=== PATIENT | female | born 1955 | race Caucasian/White ===

== ENCOUNTER 2019-06-26 06:57 | Inpatient (IN) ==
[2019-06-26] MEDS ORDERED: ONDANSETRON INJ 2 MG/ML 2 ML VIAL IV STA (07:08)
[2019-06-26] MEDS ORDERED: KETOROLAC 30 MG/ML VIAL IV STA (07:18)
--- NOTE | 2019-06-26 07:20 | Emergency Department Note ---
ED Visit Note I assisted attending Dr. Carlson in the care of this patient. Please see attending's note for details of the visit. Nori Negron MD Sheeter Helper PGY-3 . Resident Activity Tracking Resident Involvement: Resident Care Provided Care Provided: Adult ED
--- NOTE | 2019-06-26 07:25 | Emergency Department Note ---
Entered by Maurice Reynoso acting as a scribe for History of Present Illness General Chief complaint: Back Injury/Pain Stated complaint: RIGHT BACK PAIN Time Seen by Provider: 06/26/19 07:02 Source: patient History of Present Illness Onset (ago): minute(s) (this morning) Location: back (right, lower) Pain Consistency: + constant Maximum Pain Intensity: 8 Current Pain Intensity: 8 Exacerbated By: not by movement Associated symptoms: + denies other symptoms (loose stool, pain with urination, blood in her urine, a history of abdominal surgeries, taking medication daily, recent travel, vaginal bleeding, vaginal discharge) and + other (right abdominal pain); no fever/chills and no rash The patient is a 63 y/o female who presents to the ED w/ CC of constant right lower back pain beginning this morning. The patient states she woke up this morning with 8/10 lower right back pain that radiates to the front of her abdomen. She reports she has been nauseous and vomited this morning as well. The patient notes she has not had symptoms like this before. She states she did not eat anything out of the ordinary yesterday and went to [place]. The patient reports her father has a history of kidney stones. She notes a history of the shingles, and this does not feel like that. The patient states movement does not worsen her discomfort. She denies loose stool, pain with urination, fevers, chills, blood in her urine, a history of abdominal surgeries, taking medication daily, recent travel, vaginal bleeding, vaginal discharge, and rash. Home Medications Home Medications Medication Instructions Recorded Confirmed Type diclofenac sodium [Voltaren] 2 g TOPICAL QID 06/26/19 06/26/19 History Allergies Allergy/AdvReac Type Severity Reaction Status Date / Time No Known Allergies Allergy Unverified 06/26/19 08:05 Past Med/Surg History Medical History No pertinent past medical history Surgical History No pertinent past surgical history Family History Father Kidney disease Social History Preferred Language: Hebrew Communication Ability: Effective Speed Operator Required: No Beliefs That Will Affect Care: None Current Living Situation: Spouse Other Information That Helps Us Care for You: No Feels Safe at Home: Yes Safety Concerns: Feels Safe At This Time Smoking Status: Never smoker Do You Dip or Chew Tobacco: No ; Second Hand Exposure: No ; Tobacco Cessation Education Requested by Patient: No Hx Alcohol Use: No Hx Substance Use: No Review of Systems See HPI for pertinent positives & negatives. and A total of 10 systems reviewed and were otherwise negative Physical Exam Vital Signs Vital Signs - 24 hr 06/26/19 06:58 06/26/19 09:28 Temperature 36.8 C Temperature Source Oral Pulse Rate 66 Pulse Rate [Left] 57 L Respiratory Rate 20 16 Respiratory Effort / Characteristics Non-Labored Spontaneous Non-Labored Spontaneous Respiratory Depth Normal Normal Blood Pressure 152/79 H Blood Pressure [Left Arm] 134/74 Blood Pressure Mean 103 Blood Pressure Mean [Left Arm] 94 Blood Pressure Position [Left Arm] Lying Pulse Oximetry 98 91 Oxygen Delivery Method Room Air Room Air Sepsis Recent Fever Within 48 Hours No Sepsis New/Unexplained Change in Mental Status No Sepsis Action Taken by Nursing No Action Required General: Uncomfortable appearing middle aged female, holding emesis bag. HEENT: Normal cephalic atraumatic. Pupils are equal round and reactive to light. Extraocular movements are intact. Oropharynx is pink with moist mucous membranes. No swelling of the mouth lips or tongue. Neck: Supple with a midline trachea. No meningeal signs or stiffness, no JVD or bruits. No Stridor. Chest: Clear to auscultation bilaterally. No wheezes or rhonchi. No increased work of breathing. Heart: regular rate and rhythm. Abdomen: Soft minimally tender in the right lower abdomen, no rash, nondistended without rebound guarding or rigidity. Extremities: No cyanosis clubbing or edema. No calf tenderness or asymmetry Spine/Back. Mild right flank tender to palpation, no rash. No CVA tenderness Skin: Good turgor without rashes. Neurologic exam: Cranial nerves two through 12 are intact. Motor and sensation are intact and symmetrical throughout. Course Course 07: The patient was evaluated in room B10 by the resident under my supervision. A complete history and physical exam was performed. 714: The patient was evaluated in room B10 by me. A complete history and physical exam was performed. 0810: The patient's discomfort is now a 6/10. She is still having right sided pain. Her nausea has improved. 0918: Upon reevaluation, the patient is resting comfortably. I discussed laboratory and radiographic results with her. She verbalized agreement of the treatment plan. The patient will be evaluated for further management and care. 0920: The resident reviewed the patient's case with Dr. Knight, [facility]. He will evaluate the patient for further management. Administered Medications Discontinued Medications Sodium Chloride (Nss 1000ml) 1,000 mls @ 999 mls/hr IV .Q1H1M YARED Stop: 06/26/19 08:30 Last Infusion: 06/26/19 09:28 Dose: 0 mls/hr Documented by: [id number] Admin: 06/26/19 07:31 Dose: 999 mls/hr Documented by: [id number] Sodium Chloride (Nss 1000ml) 1,000 mls @ 125 mls/hr IV .Q8H YARED Stop: 07/26/19 09:14 Last Admin: 06/26/19 09:28 Dose: 125 mls/hr Documented by: [id number] Ketorolac Tromethamine (Toradol) 30 mg IV NOW STA Stop: 06/26/19 07:19 Last Admin: 06/26/19 07:31 Dose: 30 mg Documented by: [id number] Morphine Sulfate (Morphine Sulfate) 2 mg IV NOW STA Stop: 06/26/19 08:15 Last Admin: 06/26/19 08:22 Dose: 2 mg Documented by: [id number] Morphine Sulfate (Morphine Sulfate) 2 mg IV NOW STA Stop: 06/26/19 09:05 Last Admin: 06/26/19 09:28 Dose: 2 mg Documented by: [id number] Ondansetron HCl (Zofran) 4 mg IV NOW STA Stop: 06/26/19 07:09 Last Admin: 06/26/19 07:31 Dose: 4 mg Documented by: [id number] Medical Decision Making Differential Diagnosis Differential diagnosis includes: kidney stone, kidney infection, appendectomy, gynecologic, electrolyte or metabolic abnormalities. Medical Records Attestation: I reviewed the patient's medical records. Home Medications Current Medication List: was personally reviewed by me Laboratory Data Attestation: I reviewed the patient's lab results. Result diagrams: 06/26/19 07:25 03/07/20 07:25 Lab Results 06/26/19 06/26/19 06/26/19 Range/Units 07:25 07:25 08:25 WBC 8.12 (4.8-10.8) K/uL RBC 4.34 (4.2-5.4) M/uL Hgb 13.7 (12.0-16.0) g/dL Hct 40.9 (37-47) % MCV 94.2 (80-100) fL MCH 31.6 (25-34) pg MCHC 33.5 (32-36) g/dL RDW Std Deviation 42.2 (36.4-46.3) fL RDW Coeff of Khris 12.2 (11.5-14.5) % Plt Count 263 (130-400) K/uL MPV 9.3 (7.4-10.4) fL Immature Gran % (Auto) 0.6 % Neut % (Auto) 61.2 % Lymph % (Auto) 28.0 % [place] % (Auto) 7.5 % Eos % (Auto) 2.3 % Baso % (Auto) 0.4 % Immature Gran # (Auto) 0.05 H (0.00-0.02) K/uL Neut # (Auto) 4.97 (1.4-6.5) K/uL Lymph # (Auto) 2.27 (1.2-3.4) K/uL [place] # (Auto) 0.61 H (0.11-0.59) K/uL Eos # (Auto) 0.19 (0-0.5) K/uL Baso # (Auto) 0.03 (0-0.2) K/uL Sodium 141 (136-145) mmol/L Potassium 3.8 (3.5-5.1) mmol/L Chloride 110 H (98-107) mmol/L Carbon Dioxide 23 (21-32) mmol/L Anion Gap 8.0 (3-11) BUN 18 (7-18) mg/dl Creatinine 1.07 (0.6-1.2) mg/dl Est Cr Clr Drug Dosing 54.2 ml/min Est GFR ( Amer) 63.1 Est GFR (Non-Af Amer) 54.4 BUN/Creatinine Ratio 16.7 (10-20) Glucose 166 H (70-99) mg/dl Calcium 9.2 (8.5-10.1) mg/dl Total Bilirubin 0.3 (0.2-1) mg/dl AST 24 (15-37) U/L ALT 39 (12-78) U/L Alkaline Phosphatase 70 (45-117) U/L Total Protein 7.5 (6.4-8.2) gm/dl Albumin 3.6 (3.4-5.0) gm/dl Globulin 3.9 (2.5-4.0) gm/dl Albumin/Globulin Ratio 0.9 (0.9-2) Lipase 123 (73-393) U/L Urine Color Yellow Urine Appearance Clear (Clear) Urine pH 5.5 (4.5-7.5) Ur Specific [place] 1.019 (1.000-1.030) Urine Protein Trace H (Negative) Urine Glucose (UA) Negative (Negative) Urine Ketones Negative (Negative) Urine Blood 3+ H (Negative) Urine Nitrite Negative (Negative) Urine Bilirubin Negative (Negative) Urine Urobilinogen Negative (Negative) Ur Leukocyte Esterase Trace H (Negative) Urine WBC (Auto) 1-5 (0-5) /hpf Urine RBC (Auto) >30 H (0-4) /hpf U Hyaline Cast (Auto) 1-5 (0-5) /lpf U Epithel Cells (Auto) >30 H (0-5) /lpf Urine Bacteria (Auto) Negative (Negative) Imaging Data Radiologist's Impression: Radiology results as stated below per my review and the radiologist's interpretation: CT abd pelvis wo con CLINICAL HISTORY: 63 years-old Female presenting with right flank pain r/o kidney stone. TECHNIQUE: Multidetector CT of the abdomen and pelvis was performed without the use of intravenous contrast. IV contrast: None. One or more dose lowering techniques were used consistent with the principles of ALARA (as low as reasonably achievable), including automatic exposure control, mA or kV adjustment to individual patient size, and/or use of iterative reconstruction. COMPARISON: None. CT DOSE (mGy.cm): The estimated cumulative dose is 784.99 mGy.cm. FINDINGS: Medical Assisting Instructor topogram: Unremarkable. Lung bases: Normal heart size. No pericardial or pleural effusion. Minimal dependent changes likely atelectasis. Liver: Normal morphology. Normal density. Well-defined hypodense lesion centrally in the right hepatic lobe likely hepatic cyst. Biliary: No gross biliary ductal dilatation allowing for noncontrast technique. Normal gallbladder. Pancreas: Normal noncontrast appearance. Spleen: Normal noncontrast appearance. Adrenal glands: Normal noncontrast appearance. Kidneys and ureters: Asymmetric mild right perinephric fat infiltration tracking along the renal vessels and course of the right renal vein (series 3 image 164). The right kidney is slightly enlarged relative to the left. Mild right pelvocaliectasis. There may be high density fluid within the right urinary collecting system. Right periureteral fat stranding evident with a mildly distended right ureter. Obstructing 2 mm calculus in the distal right ureter just proximal to the right ureterovesical junction. No additional right renal or ureteral calculus. Dominant left renal calculus measuring 9 mm in the left renal pelvis. Mild to moderate left pelvocaliectasis. Additional smaller nonobstructing calculi in the lower pole calyx measuring up to 7 mm. Left ureter nondistended. No gross evidence of fat stranding in the region of the left renal pelvis. Bladder: Incompletely evaluated secondary to underdistention. No bladder calculus. Pelvic organs: Normal noncontrast appearance. Bowel: Normal appendix. No bowel obstruction. Small to moderate sliding-type hiatal hernia. Peritoneal cavity: Infiltration of the root of the small bowel mesentery likely mesenteric panniculitis. No free intraperitoneal gas or fluid. Lymph nodes: No gross lymphadenopathy allowing for noncontrast technique. Vasculature: Normal noncontrast appearance. Abdominal wall: Small fat-containing umbilical hernia. Musculoskeletal: Mild degenerative changes of the spine. IMPRESSION: 1. Mild right hydroureteronephrosis with an obstructing 2 mm calculus in the distal right ureter just proximal to the right UVJ. No additional renal or ureteral calculus. 2. Prominent left renal calculi with a dominant 9 mm calculus in the left renal pelvis. There is mild to moderate left pelvocaliectasis though there is no convincing hydronephrosis. This may represent a chronically dilated collecting system/flaccid collecting system. ACT 112: Negative or not required by law. Electronically signed by: Tanner Hood M.D. 06/26/2019 8:01 AM XR KUB/Abdomen 1 view CLINICAL HISTORY: 63 years-old Female presenting with nephrolithiasis. TECHNIQUE: Single supine view of the abdomen was obtained. COMPARISON: CT from earlier this morning. FINDINGS: Nonobstructive bowel gas pattern. No gross pneumoperitoneum. Pelvic calcifications are noted though there are underlying pelvic phleboliths evident on the recent CT. It is not certain if the 2 mm calcification in the right hemipelvis corresponds to the calculus or if the calculus has been passed. Left nephrolithiasis noted. Osseous structures normal. Lung bases clear. IMPRESSION: 1. It is not certain if the punctate calcifications in the right pelvis corresponds to the punctate distal right ureteral calculus as there are also several pelvic phleboliths evident on CT. Follow-up radiographs may be necessary to establish if this is static or passes. 2. Left nephrolithiasis. ACT 112: Negative or not required by law. Electronically signed by: Tnaner Hood M.D. 06/26/2019 9:46 AM Blood Pressure Blood Pressure Findings: Elevated blood pressure Blood Pressure Disposition: further management by hospitalist [facility] Narrative This patient comes in as described above. She was placed in room B 10. She is here for treatment evaluation of right flank pain rating to the abdomen. She is nauseated. She does have a family history of kidney stones but no history personally. No fever chills or dysuria. IV access established was hydrated with normal saline she was given Toradol IV and Zofran IV. Blood work urinalysis and CT were obtained. She was reassessed frequently. She has no white count or fever to suggest infection. She has no sign of electrolyte or metabolic abnormality. Her CAT scan shows a small distal stone on the right she also has a large stone on the left that is at the outlet of the kidney. Based on the bilateral stones I did have the resident talk to Dr. Gleason the on-call urologist. He feels she should be admitted/observed and we have talked to the hospitalist and they will admit her/observe her and keep her n.p.o. for possible intervention. While she was in the ER she did require additional pain medication with IV morphine. Impression & Plan Acute right flank pain, Kidney stone, Right ureteral stone, Stone in renal pelvis Discharge Plan Visit Data *Final* Discharge Date/Time: 06/26/19 11:02 Chief Complaint: Back Injury/Pain Stated Complaint: RIGHT BACK PAIN ED Provider: Rivas Carlson ED Midlevel Provider: Nori Negron Discharge Problem: Acute right flank pain, Kidney stone, Right ureteral stone, Stone in renal pelvis Patient Disposition: Admitted As Inpatient Discharge Instructions Interventions: ED Discharge Assessment Last Done: 06/26/19 11:02 The scribe's documentation has been prepared under my direction and personally reviewed by me in its entirety. I confirm that the note above accurately r eflects all work, treatment, procedures, and medical decision making performed by me.
[2019-06-26] MEDS ORDERED: SODIUM CHLORIDE 0.9% 1000ML 1,000 ML IV SCH ×3 (07:30→10:45)
[2019-06-26 07:34] LABS: Basophils # (auto) 0.03 K/uL (0-0.2); Basophils % (auto) 0.4 %; Eosinophils # (auto) 0.19 K/uL (0-0.5); Eosinophils % (auto) 2.3 %; Hematocrit (blood only) 40.9 % (37-47); Hemoglobin 13.7 g/dL (12.0-16.0); Immature Granulocytes # (auto) 0.05 K/uL (0.00-0.02); Immature Granulocytes % (auto) 0.6 %; Lymphocytes # (auto) 2.27 K/uL (1.2-3.4); Mean Corpuscular Hemoglobin 31.6 pg (25-34); Mean Corpuscular Hgb Conc 33.5 g/dL (32-36); Mean Corpuscular Volume 94.2 fL (80-100); Mean Platelet Volume 9.3 fL (7.4-10.4); Monocytes # (auto) 0.61 K/uL (0.11-0.59); Monocytes % (auto) 7.5 %; Neutrophils # (auto) 4.97 K/uL (1.4-6.5); Neutrophils % (auto) 61.2 %; Platelet Count 263 K/uL (130-400); RDW Coefficient of Variation 12.2 % (11.5-14.5); RDW Standard Deviation 42.2 fL (36.4-46.3); Red Blood Count 4.34 M/uL (4.2-5.4); White Blood Count 8.12 K/uL (4.8-10.8)
[2019-06-26 07:55] LABS: Albumin Level 3.6 gm/dl (3.4-5.0); BUN Creatinine Ratio 16.7 (10-20); Calcium 9.2 mg/dl (8.5-10.1); Creatinine Clr Calc Pharmacy 54.2 ml/min; Est GFR (African American) 63.1; Est GFR (Non-African American) 54.4; Potassium 3.8 mmol/L (3.5-5.1)
[2019-06-26 07:58] LABS: Albumin Globulin Ratio 0.9 (0.9-2); Bilirubin,Total 0.3 mg/dl (0.2-1); Globulin 3.9 gm/dl (2.5-4.0); Total Protein 7.5 gm/dl (6.4-8.2)
--- NOTE | 2019-06-26 08:02 | CT Scan Report ---
CT abd pelvis wo con CLINICAL HISTORY: 63 years-old Female presenting with right flank pain r/o kidney stone. TECHNIQUE: Multidetector CT of the abdomen and pelvis was performed without the use of intravenous co ntrast. IV contrast: None. One or more dose lowering techniques were used consistent with the princip les of ALA (as low as reasonably achievable), including automatic exposure control, mA or kV adjust ment to individual patient size, and/or use of iterative reconstruction. COMPARISON: None. CT DOSE (mGy.cm): The estimated cumulative dose is 784.99 mGy.cm. FINDINGS: Mica Paster topogram: Unremarkable. Lung bases: Normal heart size. No pericardial or pleural effusion. Minimal dependent changes likely a telectasis. Liver: Normal morphology. Normal density. Well-defined hypodense lesion centrally in the right hepati c lobe likely hepatic cyst. Biliary: No gross biliary ductal dilatation allowing for noncontrast technique. Normal gallbladder. Pancreas: Normal noncontrast appearance. Spleen: Normal noncontrast appearance. Adrenal glands: Normal noncontrast appearance. Kidneys and ureters: Asymmetric mild right perinephric fat infiltration tracking along the renal vess els and course of the right renal vein (series 3 image 164). The right kidney is slightly enlarged re lative to the left. Mild right pelvocaliectasis. There may be high density fluid within the right uri nary collecting system. Right periureteral fat stranding evident with a mildly distended right ureter . Obstructing 2 mm calculus in the distal right ureter just proximal to the right ureterovesical junc tion. No additional right renal or ureteral calculus. Dominant left renal calculus measuring 9 mm in the left renal pelvis. Mild to moderate left pelvocaliectasis. Additional smaller nonobstructing calc adiel in the lower pole calyx measuring up to 7 mm. Left ureter nondistended. No gross evidence of fat stranding in the region of the left renal pelvis. Bladder: Incompletely evaluated secondary to underdistention. No bladder calculus. Pelvic organs: Normal noncontrast appearance. Bowel: Normal appendix. No bowel obstruction. Small to moderate sliding-type hiatal hernia. Peritoneal cavity: Infiltration of the root of the small bowel mesentery likely mesenteric panniculit is. No free intraperitoneal gas or fluid. Lymph nodes: No gross lymphadenopathy allowing for noncontrast technique. Vasculature: Normal noncontrast appearance. Abdominal wall: Small fat-containing umbilical hernia. Musculoskeletal: Mild degenerative changes of the spine. IMPRESSION: 1. Mild right hydroureteronephrosis with an obstructing 2 mm calculus in the distal right ureter jus t proximal to the right UVJ. No additional renal or ureteral calculus. 2. Prominent left renal calculi with a dominant 9 mm calculus in the left renal pelvis. There is mil d to moderate left pelvocaliectasis though there is no convincing hydronephrosis. This may represent a chronically dilated collecting system/flaccid collecting system. ACT 112: Negative or not required by law. Electronically signed by: Tanner Hood M.D. 06/26/2019 8:01 AM
[2019-06-26] MEDS ORDERED: MoRPHine SULFATE 2 MG/ML CARP IV STA ×2 (08:14→09:04)
[2019-06-26 08:53] LABS: Appearance Urine Clear (Clear); Bacteria Urine Automated Negative (Negative); Bilirubin Urine Negative (Negative); Blood Urine 3+ (Negative); Color Urine Yellow; Epithelial Cell Urine Auto >30 /lpf (0-5); Glucose Urine UA Negative (Negative); Ketones Urine Negative (Negative); Leukocyte Esterase Urine Trace (Negative); Nitrite Urine Negative (Negative); Protein Urine Trace (Negative); RBC Urine Automated >30 /hpf (0-4); Specific Gravity Urine 1.019 (1.000-1.030); Urobilinogen Urine Negative (Negative); pH Urine 5.5 (4.5-7.5)
--- NOTE | 2019-06-26 09:48 | XRay Report ---
XR KUB/Abdomen 1 view CLINICAL HISTORY: 63 years-old Female presenting with nephrolithiasis. TECHNIQUE: Single supine view of the abdomen was obtained. COMPARISON: CT from earlier this morning. FINDINGS: Nonobstructive bowel gas pattern. No gross pneumoperitoneum. Pelvic calcifications are noted though there are underlying pelvic phleboliths evident on the recent CT. It is not certain if the 2 mm calcification in the right hemipelvis corresponds to the calculus o r if the calculus has been passed. Left nephrolithiasis noted. Osseous structures normal. Lung bases clear. IMPRESSION: 1. It is not certain if the punctate calcifications in the right pelvis corresponds to the punctate distal right ureteral calculus as there are also several pelvic phleboliths evident on CT. Follow-up radiographs may be necessary to establish if this is static or passes. 2. Left nephrolithiasis. ACT 112: Negative or not required by law. Electronically signed by: Tanner Hood M.D. 06/26/2019 9:46 AM
[2019-06-26] MEDS ORDERED: NSS + 20MEQ KCL 20 MEQ/1,000 ML BAG IV SCH (10:00)
--- NOTE | 2019-06-26 10:41 | History & Physical Report ---
Date of Service June 26, 2019 Assessment & Plan (1) Right ureteral stone: Right lower abdominal pain which goes to the groin since this morning Noted to have distal right obstructing 2 mm calculus with associated hydro- urethral necrosis Urologist consulted We will keep her n.p.o. for possible cystoscopy/ureteroscopy this afternoon Symptomatic management (2) Hydronephrosis, right: Has right ureteral nephrosis Will give adequate amount of IV fluid Monitor PRP (3) Stone in renal pelvis: Has left renal pelvis system which is 9 mm Nonobstructive DVT prophylaxis SCDs CODE STATUS Full History of Present Illness Chief Complaint: Severe right-sided abdominal pain with nausea and vomiting since this morning Primary Care Provider: Bro Mcallister MD She is a 63-year-old female without significant past medical history has been complaining of severe right lower abdominal pain that goes to the groin since this morning associated with nausea and vomiting. She denies any fever and/or chills with it and denies any problems with urination or any blood in the urine. Does not have any problem with her bowel habit. She denies any chest pain, shortness of breath, palpitation. And she denies any numbness and or tingling involving any of the extremities. CT of the abdomen did show 2 mm obstructing right ureteric stone with associated hydronephrosis and also 9 mm left renal pelvis stone. She was admitted to medical floor for continuation of care and urologist was consulted. Allergies Allergy/AdvReac Type Severity Reaction Status Date / Time No Known Allergies Allergy Unverified 06/26/19 08:05 Home Medications Home Medications Medication Instructions Recorded Confirmed Type diclofenac sodium [Voltaren] 2 g TOPICAL QID 06/26/19 06/26/19 History Past Med/Surg History Medical History No pertinent past medical history Surgical History No pertinent past surgical history Family History Father Kidney disease Social History Preferred Language: Ukrainian Communication Ability: Effective Health Systems Analyst Required: No Beliefs That Will Affect Care: None Current Living Situation: Spouse Other Information That Helps Us Care for You: No Feels Safe at Home: Yes Safety Concerns: Feels Safe At This Time Smoking Status: Never smoker Do You Dip or Chew Tobacco: No ; Second Hand Exposure: No ; Tobacco Cessation Education Requested by Patient: No Hx Alcohol Use: No Hx Substance Use: No Review of Systems Review of Systems: All systems reviewed & are unremarkable except as noted in HPI & below Physical Exam Physical Exam: Lying in bed with acute distress due to right lower abdominal pain and nausea Constitutional: well developed, well nourished, + acute distress (Abdominal pain and nausea) and + ill appearing Eyes: PERRL, conjunctivae normal, anicteric sclerae ENMT: external ear and nose normal, oropharynx normal Neck: trachea midline, no thyromegaly Respiratory: normal respiratory effort, lungs clear to auscultation Cardiovascular: Rate/Rhythm: regular rate and regular rhythm Heart Sounds: no murmur Gastrointestinal (Abdomen): Inspection/Auscultation: abdomen normal to inspection and normal bowel sounds; abdomen not distended Percussion/Palpation: + abdomen tender (Right lower quadrant and groin area) Musculoskeletal: No acute arthritis in any joints Neurologic: moves all extremities; no focal motor deficits Alert, awake and oriented x3 Lymphatic: no cervical or axillary lymphadenopathy Results & Data Vital Signs (Past 12 Hours) Vital Signs Temp Pulse Pulse Resp BP BP Pulse Ox 06/26/19 09:28 57 L 16 134/74 91 06/26/19 06:58 36.8 C 66 20 152/79 H 98 Laboratory Results Short CBC 06/26/19 Range/Units 07:25 WBC 8.12 (4.8-10.8) K/uL Hgb 13.7 (12.0-16.0) g/dL Hct 40.9 (37-47) % Plt Count 263 (130-400) K/uL BMP 06/26/19 07:25 Sodium 141 Potassium 3.8 Chloride 110 H Carbon Dioxide 23 BUN 18 Creatinine 1.07 Glucose 166 H Calcium 9.2 Liver Function 06/26/19 Range/Units 07:25 Total Bilirubin 0.3 (0.2-1) mg/dl AST 24 (15-37) U/L ALT 39 (12-78) U/L Alkaline Phosphatase 70 (45-117) U/L Albumin 3.6 (3.4-5.0) gm/dl Urine 06/26/19 Range/Units 08:25 Urine Color Yellow Urine Appearance Clear (Clear) Urine pH 5.5 (4.5-7.5) Ur Specific [place] 1.019 (1.000-1.030) Urine Protein Trace H (Negative) Urine Glucose (UA) Negative (Negative) Medications Administered Current Inpatient Medications Sodium Chloride (Nss 1000ml) 1,000 mls @ 125 mls/hr IV .Q8H YARED Stop: 07/26/19 09:14 Last Admin: 06/26/19 09:28 Dose: 125 mls/hr Documented by: Potassium Chloride/Sodium Chloride (Normal Saline W/20 Meq Kcl) 20 meq in 1,000 mls @ 125 mls/hr IV .Q8H [facility] Stop: 06/27/19 09:59 Code Status & VTE Plan VTE Prophylaxis Plan VTE Prophylaxis will be ordered: Yes
[2019-06-26] MEDS: KETOROLAC 30 MG/ML VIAL IV PRN ×2 (14:56→21:01)
[2019-06-26] MEDS: DICLOFENAC SOD 1% GEL 100 GM TUBE EXT SCH ×3 (17:07→21:06)
[2019-06-26] MEDS: SODIUM CHLORIDE 0.45 % 1,000 ML IV SCH (19:33)
[2019-06-27] MEDS: ONDANSETRON INJ 2 MG/ML 2 ML VIAL IV PRN ×3 (00:47→23:24)
[2019-06-27] MEDS: MoRPHine SULFATE 4 MG/ML 1 ML CARP\\VIAL IV PRN (00:51)
[2019-06-27] MEDS: SODIUM CHLORIDE 0.45 % 1,000 ML IV SCH ×4 (00:53→23:24)
--- NOTE | 2019-06-27 04:21 | Consultation Report ---
DATE OF CONSULTATION: 06/26/2019 REASON FOR THE CONSULT: Sudden onset of right abdominal and flank pain this morning. HISTORY OF PRESENTATION: The patient is a 63-year-old female who presented to the Emergency Room with severe constant right lower back and abdominal pain that started this morning. The patient says she woke up with 8/10 pain in her back that radiated to the front of her abdomen and she reported nausea and vomiting as well. She never had symptoms like this before. No previous history of stones. Her father did have a history of stones. She denies any fever or urinary tract infections. CT scan was obtained which showed a 2 mm distal right ureteral stone. A 9 mm dominant left renal pelvic stone and several smaller stones in the left kidney. There was some caliectasis on the left, but it was unclear whether this was true hydronephrosis. PAST SURGICAL HISTORY: Significant for breast reduction as well as laparoscopy. ALLERGIES: She has no known drug allergies. MEDICATIONS: She does not take meds. PAST MEDICAL HISTORY: She has no past medical problems including no diabetes or coronary artery disease. SOCIAL HISTORY: She does not smoke and drinks rarely. REVIEW OF SYSTEMS: Essentially negative except for some chronic back pain. A total of 10 systems were reviewed and were otherwise negative. PHYSICAL EXAMINATION: GENERAL: Well-developed female in mild distress. HEENT: Unremarkable. NECK: Supple without stiffness, midline trachea. RESPIRATORY: No respiratory distress. HEART: No pedal edema. ABDOMEN: Soft, nontender except for some tenderness in the right lower quadrant. EXTREMITIES: Unremarkable without any calf tenderness. SPINE: Mild right flank tenderness to palpation. SKIN: Normal turgor without any evidence of rash or erythema. NEUROLOGIC: Alert and oriented without focal or sensory deficits. ASSESSMENT: Distal right ureteral stone. There was some concern initially that she could be bilaterally obstructed, but she was making urine and creatinine was normal. No evidence of bacteria. There were minimal white blood cells. CBC showed a normal white blood cell count. ASSESSMENT: Distal right ureteral stone and left renal pelvic stone with some caliectasis. PLAN. If the patient continues to have pain overnight, would consider right ureteroscopy and left retrograde possible left stent placement for left ESWL. Discussed the surgery with the patient including the risks of the surgery as well as the possibility of doing ESWL on the left side. The patient understands the options which include observation and a KUB was performed and it is difficult to see the stone on the right side clearly. There are some phleboliths in the right and it strikes me that the phlebolith on the KUB is what we see instead of the stone. If the patient continues to have symptoms, we consider again ureteroscopy in the morning and she agrees.
[2019-06-27 06:21] LABS: Basophils # (auto) 0.02 K/uL (0-0.2); Basophils % (auto) 0.2 %; Eosinophils # (auto) 0.03 K/uL (0-0.5); Eosinophils % (auto) 0.3 %; Hematocrit (blood only) 37.2 % (37-47); Hemoglobin 12.3 g/dL (12.0-16.0); Immature Granulocytes # (auto) 0.01 K/uL (0.00-0.02); Immature Granulocytes % (auto) 0.1 %; Lymphocytes # (auto) 1.99 K/uL (1.2-3.4); Mean Corpuscular Hemoglobin 31.4 pg (25-34); Mean Corpuscular Hgb Conc 33.1 g/dL (32-36); Mean Corpuscular Volume 94.9 fL (80-100); Mean Platelet Volume 9.1 fL (7.4-10.4); Monocytes # (auto) 0.98 K/uL (0.11-0.59); Monocytes % (auto) 9.4 %; Neutrophils # (auto) 7.45 K/uL (1.4-6.5); Platelet Count 222 K/uL (130-400); RDW Coefficient of Variation 12.4 % (11.5-14.5); RDW Standard Deviation 42.5 fL (36.4-46.3); Red Blood Count 3.92 M/uL (4.2-5.4); White Blood Count 10.48 K/uL (4.8-10.8)
[2019-06-27] MEDS: KETOROLAC 30 MG/ML VIAL IV PRN (06:55)
[2019-06-27 07:01] LABS: BUN Creatinine Ratio 15.8 (10-20); Calcium 8.5 mg/dl (8.5-10.1); Creatinine Clr Calc Pharmacy 44.6 ml/min; Est GFR (African American) 49.9; Potassium 3.9 mmol/L (3.5-5.1)
[2019-06-27] MEDS: DICLOFENAC SOD 1% GEL 100 GM TUBE EXT SCH (07:57)
--- NOTE | 2019-06-27 11:12 | XRay Report ---
KUB HISTORY: Follow-up right ureteral stone COMPARISON: KUB 06/26/2019. FINDINGS: The bowel gas pattern is unremarkable. There are no dilated loops of small bowel to suggest an obstruction. No change in the dominant 1.5 cm stone within the left renal pelvis. Multiple addit ional calculi noted within the left lower pole are again noted. There is a 2 mm calcification within the right deep pelvis which may represent the distal right ureteral stone. A few additional pelvic fl uid was are again noted. No pneumoperitoneum or pneumatosis. IMPRESSION: No change in the left-sided nephrolithiasis and the suspected 2 mm distal right ureteral stone. ACT 112: Negative or not required by law. Electronically signed by: Catracho Estrada M.D. 06/27/2019 11:11 AM
--- NOTE | 2019-06-27 11:25 | Urology Progress Note ---
Date of Service 63 y/o female with ongoing but less pain from r ureteral stone and l renal stone that appears to be causing obstruction . Kub confirms what appears to be persi stence of distal l ureteral stone . her creatinine laurence to 1.3 from 1 with good hydration but she is still making urine . Discussed option of r ureteroscopy with stone removal and l retrograde and l stent for apparent l renal stone . Warned of pain from stents and risks of ureteroscopy and spoke with from home and explained the options of observation at home versus intervention and stent on left versus no stent and they both agreed to proceed today with intervention and eswl on left this Thursday June 27, 2019 Assessment & Plan (1) Hydronephrosis, right: (2) Hydronephrosis of left kidney: (3) Renal calculus, left: (4) Right ureteral stone: Physical Exam Physical Exam: mild right lower quadrant pain Results & Data Vital Signs (Past 12 Hours) Vital Signs Temp Pulse Resp BP Pulse Ox 06/27/19 07:13 37 C 72 18 159/70 H 94 06/26/19 22:55 36.8 C 79 16 116/61 94 PG Care Time/CCT Total # of Minutes Spent Total Time Spent with Patient: Total time spent is greater than 50% in coordination of care (as documented) at patient's floor/unit and/or counseling patient: 30 minutes Coding Level of Care Code 49826 Subseq Hosp Care Lvl 3 Diagnoses Hydronephrosis, right N13.30 Hydronephrosis of left kidney N13.30 Renal calculus, left N20.0 Right ureteral stone N20.1
--- NOTE | 2019-06-27 11:48 | Anesthesiology Consultation ---
Date of Service June 27, 2019 Assessment & Plan Chart Review Chart Review: Acceptable Risk for Surgery and Patient NOT seen in Pre Admission Testing Consults Requested none ASA [id number] Proposed Anesthesia Anesthesia Type: General Risk / Benefits Reviewed With: PT / POA / Parent / Guardian, Accepts Plan and Informed Consent Obtained History Surgery Operation Date: 06/27/19 12:00 Proposed Procedures p Cystoscopy - Beto Gleason MD Height/Weight Height: 5 ft 4 in Weight: 81.7 kg Allergies Allergy/AdvReac Type Severity Reaction Status Date / Time No Known Allergies Allergy Unverified 06/26/19 08:05 Medications Home Medications Medication Instructions Recorded Confirmed Last Taken diclofenac sodium [Voltaren] 2 g TOPICAL QID 06/26/19 06/26/19 06/26/19 Active Medications Generic Name Dose Route Start Last Admin Trade Name Freq PRN Reason Stop Dose Admin Diclofenac Sodium 2 gm 06/26/19 13:00 06/27/19 07:57 Voltaren 1% Top EXT 07/26/19 12:59 Not Given QID YARED Sodium Chloride 1,000 mls @ 100 mls/hr 06/26/19 17:15 06/27/19 09:54 1/2 Nss IV 07/26/19 17:14 100 mls/hr .Q10H YARED Administration Ketorolac Tromethamine 30 mg 06/26/19 10:42 06/27/19 06:55 Toradol IV 07/01/19 10:41 30 mg Q6H PRN Administration Pain Morphine Sulfate 4 mg 06/26/19 10:42 06/27/19 00:51 Morphine Sulfate IV 07/10/19 10:41 4 mg Q4H PRN Administration Pain Ondansetron HCl 4 mg 06/26/19 10:42 06/27/19 06:55 Zofran IV 07/26/19 10:44 4 mg Q6H PRN Administration Nausea And Vomiting NPO Date Last Intake of Fluids: 06/26/19 Time Last Intake of Fluids: 23:00 Date Last Intake of Solids: 06/26/19 Time Last Intake of Solids: 23:00 Past Medical History Medical History No pertinent past medical history Exercise / Class Metabolic Activity II 4-5 Yardwork/Stairs/Walk up hill Past Family History Family History Father Kidney disease Past Surgical History Surgical History No pertinent past surgical history Past Anesthesia History No Hx of Anesthesia Complications and No Family Hx of Anesthesia Complications History of PONV No Hx of PONV and No Hx of Motion Sickness Social History Smoking Status: Never smoker Do You Dip or Chew Tobacco: No Hx Alcohol Use: No Hx Substance Use: No substance use type: does not use Physical Exam Vital Signs Last Vital Signs Temp 37 C 06/27/19 07:13 Pulse 72 06/27/19 07:13 Resp 18 06/27/19 07:13 BP 159/70 H 06/27/19 07:13 Pulse Ox 94 06/27/19 07:13 Constitutional + obese ENMT Mouth: no dentition abnormality Thyromental Distance: < 3.5 Finger Breadths Mallampati Class: II Neck normal visual inspection and trachea midline; neck extension not limited Respiratory normal respiratory effort Auscultation: lungs clear to auscultation bilaterally Cardiovascular Rate/Rhythm: regular rate and regular rhythm Heart Sounds: no murmur Vessels: no carotid bruit Musculoskeletal Spine: normal cervical ROM Extremities: extremities normal to inspection Neurologic moves all extremities Motor/Sensory: no sensory deficit Psychiatric Orientation: alert and oriented x 3 Testing Laboratory Results 06/27/19 06:09 06/27/19 06:09 Urine Color Yellow 06/26/19 08:25 Urine Appearance Clear (Clear) 06/26/19 08:25 Urine pH 5.5 (4.5-7.5) 06/26/19 08:25 Ur Specific [place] 1.019 (1.000-1.030) 06/26/19 08:25 Urine Protein Trace (Negative) H 06/26/19 08:25 Urine Glucose (UA) Negative (Negative) 06/26/19 08:25 Urine Ketones Negative (Negative) 06/26/19 08:25 Urine Nitrite Negative (Negative) 06/26/19 08:25 Ur Leukocyte Esterase Trace (Negative) H 06/26/19 08:25 Urine WBC (Auto) 1-5 /hpf (0-5) 06/26/19 08:25 Urine RBC (Auto) >30 /hpf (0-4) H 06/26/19 08:25 U Hyaline Cast (Auto) 1-5 /lpf (0-5) 06/26/19 08:25 U Epithel Cells (Auto) >30 /lpf (0-5) H 06/26/19 08:25 Urine Bacteria (Auto) Negative (Negative) 06/26/19 08:25 Electrocardiogram Date: 06/26/19 Findings: + NSR @ (at 69)
[2019-06-27] MEDS ORDERED: ePHEDrine sulfate 50 MG/ML AMP IV PRN (11:52)
[2019-06-27] MEDS ORDERED: FLUMAZENIL 0.1 MG/1 ML 10 ML VIAL IV PRN (11:52)
[2019-06-27] MEDS ORDERED: ONDANSETRON INJ 2 MG/ML 2 ML VIAL IV PRN (11:52)
[2019-06-27] MEDS ORDERED: fentaNYL citrate 100 MCG/2 ML VIAL IV PRN (11:52)
[2019-06-27] MEDS ORDERED: ATROPINE SULFATE 0.1 MG/ML 10ML SYR IV PRN (11:52)
[2019-06-27] MEDS ORDERED: LABETALOL HCL IV 5 MG/ML 20ML IV PRN (11:52)
[2019-06-27] MEDS ORDERED: NALOXONE HCL 0.4 MG/1 ML VIAL/CARP IV PRN (11:52)
[2019-06-27] MEDS ORDERED: PROMETHAZINE HCL 12.5 MG in SODIUM CHLORIDE 0.9% 50 ML IV PRN (11:52)
[2019-06-27] MEDS ORDERED: fentaNYL citrate 100 MCG/2 ML VIAL ONE (11:54)
[2019-06-27] MEDS ORDERED: MIDAZOLAM HCL 1 MG/ML 2ML VIAL ONE (11:54)
[2019-06-27] MEDS ORDERED: PROPOFOL IV EMULSION 10 MG/ML 20 ML VIAL IV ONE (11:54)
[2019-06-27] MEDS ORDERED: IOTHALAMATE MEGLUMINE II 17.2% 250 ML VIAL ONE (12:09)
--- NOTE | 2019-06-27 12:11 | Hospitalist Progress Note ---
Date of Service June 27, 2019 Assessment & Plan (1) Right ureteral stone: Right ureteral obstructing calculus with associated hydronephrosis. The patient underwent a right ureteral laser procedure with bilateral ureteral stent placement today and is recovering well in her room. Her pain is resolved and she is stable. Plan to stay overnight, repeat lab work in the morning and ensure her twinge of ureteral stent pain does not increase into something more pronounced. Furthermore, plans for ESWL to the left later this week in urology clinic. (2) Acute kidney injury: Likely secondary to obstructive uropathy versus prerenal azotemia versus NSAID use. Currently her pain is 0 so expect no need for further NSAIDs at this time. Continue to hydrate orally and repeat labs in a.m. (3) Left nephrolithiasis: Plan for ESWL to left in urology clinic later on this week. (4) DVT prophylaxis: SCD/ambulation Full code Disposition-to home in a.m. Zoya Bangura [facility] and [facility]tic[facility]ated Discharge Date Admission Date: June 26, 2019 Subjective 63-year-old female admitted for ureteral colic secondary to nephrolithiasis. She is now back from her procedure and was evaluated in the room. She is mentating clearly and ambulating well. She reports her pain level is a 0 except does feel a twinge of stent pain. She does not feel this warrants medication at this time. is at the bedside. We discussed the labs and discharge plan. We decided it would be in her best interest to stay and ensure the stent pain does not get worse in addition to repeat the blood work tomorrow and sure her acute kidney injury has resolved. Review of Systems Review of Systems: All systems reviewed & are unremarkable except as noted in Subjective Physical Exam Physical Exam: CONSTITUTIONAL: WNWD, vitals as above, generally well- appearing EYES: normal conjunctivae, no scleral icterus ENT: MMM RESPIRATORY: clear to auscultation bilaterally, no crackles, rales or wheezes, normal respiratory effort CARDIOVASCULAR: regular rate and rhythm, S1 and 2 heard without murmurs, gallops or rubs, no JVD, no peripheral edema GASTROINTESTINAL: normal bowel sounds, soft, nontender, nondistended, no CVA tenderness MUSCULOSKELETAL: strength 5/5 throughout, head is normocephalic and atraumatic SKIN: warm and dry NEUROLOGIC: CN 2-12 grossly intact, no sensory deficit, normal cognition, normal speech PSYCHIATRIC: alert cooperative and oriented to person, place and time. Results & Data ([facility]) Vital Signs (Past 12 Hours) Vital Signs Temp Pulse Resp BP Pulse Ox 06/27/19 07:13 37 C 72 18 159/70 H 94 Laboratory Results Short CBC 06/27/19 Range/Units 06:09 WBC 10.48 (4.8-10.8) K/uL Hgb 12.3 (12.0-16.0) g/dL Hct 37.2 (37-47) % Plt Count 222 (130-400) K/uL BMP 06/27/19 06:09 Sodium 141 Potassium 3.9 Chloride 110 H Carbon Dioxide 25 BUN 21 H Creatinine 1.30 H Glucose 106 H Calcium 8.5 Medications Administered Current Inpatient Medications Atropine Sulfate (Atropine Sulfate) 0.5 mg IV Q1M PRN PRN Reason: PACU Use-HR<40 &/or Bradycardi Stop: 06/27/19 19:52 Diclofenac Sodium (Voltaren 1% Top) 2 gm EXT QID [facility] Stop: 07/26/19 12:59 Last Admin: 06/27/19 07:57 Dose: Not Given Documented by: Ephedrine Sulfate (Ephedrine Sulfate) 5 mg IV Q5M PRN PRN Reason: PACU Use Only-SBP<90 mmHg Stop: 06/27/19 19:52 Fentanyl Citrate (Fentanyl Citrate) 25 mcg IV Q5M PRN PRN Reason: PACU Use Only-Pain Stop: 06/27/19 19:53 Flumazenil (Romazicon) 0.2 mg IV Q2M PRN PRN Reason: PACU Use Only-Benzo Reversal Stop: 06/27/19 19:53 Sodium Chloride (1/2 Nss) 1,000 mls @ 100 mls/hr IV .Q10H [facility] Stop: 07/26/19 17:14 Last Admin: 06/27/19 09:54 Dose: 100 mls/hr Documented by: Promethazine HCl 12.5 mg/ (Sodium Chloride) 50.5 mls @ 204 mls/hr IV ONCE PRN PRN Reason: PACU Use Only-Nausea/Vomiting Stop: 06/27/19 19:53 Ciprofloxacin (Cipro) 400 mg in 200 mls @ 100 mls/hr IV PREOP@1215 YARED; Protocol Stop: 06/27/19 14:14 Ketorolac Tromethamine (Toradol) 30 mg IV Q6H PRN PRN Reason: Pain Stop: 07/01/19 10:41 Last Admin: 06/27/19 06:55 Dose: 30 mg Documented by: Labetalol HCl (Normodyne) 5 mg IV Q5M PRN PRN Reason: PACU Use-SBP>160 or DBP>100 Stop: 06/27/19 19:53 Morphine Sulfate (Morphine Sulfate) 4 mg IV Q4H PRN PRN Reason: Pain Stop: 07/10/19 10:41 Last Admin: 06/27/19 00:51 Dose: 4 mg Documented by: Naloxone HCl (Narcan) 0.2 mg IV Q2M PRN PRN Reason: PACU Use Only-Opiate Reversal Stop: 06/27/19 19:53 Ondansetron HCl (Zofran) 4 mg IV Q6H PRN PRN Reason: Nausea And Vomiting Stop: 07/26/19 10:44 Last Admin: 06/27/19 06:55 Dose: 4 mg Documented by: Ondansetron HCl (Zofran) 4 mg IV ONCE PRN PRN Reason: PACU Use Only-Nausea/Vomiting Stop: 06/27/19 19:53
[2019-06-27] MEDS ORDERED: CIPROFLOXACIN / D5W 400 MG/200 ML BAG IV SCH (12:15)
[2019-06-27] MEDS ORDERED: DEXAMETHASONE SOD INJ 4 MG/ML VIAL ONE (12:35)
[2019-06-27] MEDS ORDERED: PHENYLEPHRINE 100MCG/ML 5ML SYR ONE (12:36)
[2019-06-27] MEDS ORDERED: ROCURONIUM BROMIDE 10 MG/ML 5 ML VIAL ONE (12:36)
[2019-06-27] MEDS ORDERED: SUCCINYLCHOLINE CHLORIDE 20 MG/ML 10 ML VIAL ONE (12:36)
[2019-06-27] MEDS ORDERED: ONDANSETRON INJ 2 MG/ML 2 ML VIAL ONE (12:36)
--- NOTE | 2019-06-27 13:59 | Post Operative Brief Note ---
PG Immediate Post Op with CF Date of Surgery June 27, 2019 Pre & Post Diagnosis Operation Date: 06/27/19 12:00 Pre-Op Diagnosis: Right obstructing ureteral stone with hydronephroesis Post-Op Diagnosis: Right obstructing ureteral stone with hydronephroesis I identified the patient and participated in the time-out.: Yes Procedure Operation Date: 06/27/19 12:00 Actual Procedures p Cystoscopy, Right ureteroscopy, laser lithotripsy, Left retrograde pyelogram, and bilateral stent placement(Bilateral) - Beto Gleason MD Surgeon Beto Gleason MD Product Marketing Consultant none Estimated Blood Loss 5 Findings Consistent with Post-Op Diagnosis Specimens Specimen Description: Permanent Specimen: A: Bilateral kidney calculi for chemical analysis
--- NOTE | 2019-06-27 14:13 | Fluoroscopy Report ---
FL retrograde includes kub CLINICAL HISTORY: URETERAL STONE COMPARISON STUDY: KUB 06/27/2019. FLUOROSCOPY TIME: 31 seconds. FINDINGS: 8 fluoroscopic spot images of the abdomen and pelvis were submitted. Retrograde placement o f bilateral ureteral stents which appear in good position. There is opacification of the left renal c ollecting system which appears dilated. IMPRESSION: Fluoroscopy provided for bilateral ureteral stent placement which appear in good position . ACT 112: Negative or not required by law. Electronically signed by: Catracho Etsrada M.D. 06/27/2019 2:12 PM
--- NOTE | 2019-06-27 14:24 | Anesthesiology Progress Note ---
Date of Service June 27, 2019 Anesthesia Post Procedure Vital Signs Vital Signs: Temp Pulse Pulse Pulse Resp BP Pulse Ox 06/27/19 14:21 36.4 C L 69 16 125/79 96 06/27/19 14:00 36.4 C L 67 20 133/84 95 06/27/19 13:50 73 14 121/80 96 06/27/19 13:40 72 16 121/80 96 06/27/19 13:30 36.2 C L 74 16 109/77 96 06/27/19 07:13 37 C 72 18 159/70 H 94 06/26/19 22:55 36.8 C 79 16 116/61 94 06/26/19 15:36 37.1 C 77 16 133/78 95 Transfer of Care Handoff Completed per policy Notes Mental Status: alert / awake / arousable Patient Amnestic to Procedure: Yes Nausea / Vomiting: adequately controlled Pain: adequately controlled Airway Patency, RR, SpO2: stable & adequate BP & HR: stable & adequate Hydration State: stable & adequate Anesthetic Complications: no major complications apparent
--- NOTE | 2019-06-27 16:44 | Operative Report (OR) ---
DATE OF OPERATION: 06/27/2019 PREOPERATIVE DIAGNOSES: Distal right ureteral stone and proximal left renal pelvic stone with apparent hydronephrosis. PROCEDURE PERFORMED: Right ureteroscopy; right balloon dilation of distal ureter, ureteral stricture; right laser lithotripsy of stone; right stone removal and right stent and also left retrograde and left stent placement. INDICATIONS: The patient had pain in the distal right side yesterday causing her to be admitted, causing to have nausea and vomiting overnight as well as nausea and requirement for Toradol this morning and also antinausea medication. She also has apparent stone, which appeared to be causing dilatation of the left collecting system secondary to a 9 mm left ureteral stone. I did talked to the patient, she was not having significant pain, but had nausea this morning and I told her that I was concerned that her creatinine had gone from 1 to 1.3 even though she was well hydrated. She was making urine. The stone appeared to be relatively small. I gave her the option of going home to see if she could pass the fragments, but I was also concerned that should her creatinine might continue to rise and I thought that if we did a procedure, I would want to do a left stent and also a left retrograde to make sure she did not have an obvious UPJ obstruction. She agreed to proceed. DESCRIPTION OF THE PROCEDURE: She was taken to the Operating Room where general anesthesia was administered. She was given preoperative antibiotics and had Venodyne stockings placed. She was placed in the dorsal lithotomy position and prepped and draped in the usual sterile fashion. A 21-Slovenian cystoscope was passed per urethra. I attempted initially to pass a guidewire, could not get it much into the distal ureter. I have tried to pass an open-ended catheter and passed the wire, but could not get very far. Then I passed the ureteroscope. I could see that the wire and the open-ended catheter damaged the distal ureter somewhat, was able to pass the guidewire in the appropriate place and could see the stone above a narrowed area. I could not advance the scope up to the stone. I was able to see the stone fragmented into several smaller pieces, but still they were too large to come through the opening and they appeared to migrate proximally, so I balloon dilated this narrowed area and was able to pass the scope up to the fragments and fragment the stone smaller, grasp the largest piece and removed it. I then placed a 6-Slovenian 24 cm stent double J on the right side and focused attention on the left side. Again, it was difficult to pass a wire into the left ureter, did so through a ureteroscope quite easily and then passed the open-ended catheter over this, did a retrograde. It did not appear to be a significant UPJ obstruction, though there was some narrowing of the proximal ureter below the UPJ, but not a clear stricture or a clear UPJ obstruction. After this, there was clear caliectasis and there was stone in the renal pelvis. I passed a guidewire through the open-ended catheter and passed a 5-Slovenian 24 cm stent with strings attached to it as opposed to a double-J stent. This was on the left side and the double J was on the right. At the end of the procedure, the patient's bladder was emptied and she was transferred to Recovery Room in stable condition. I attest to the content of the Intraoperative Record and any orders documented therein. Any exceptions are noted below. ADORE
[2019-06-28] MEDS: DICLOFENAC SOD 1% GEL 100 GM TUBE EXT SCH (00:17)
[2019-06-28] MEDS: MoRPHine SULFATE 4 MG/ML 1 ML CARP\\VIAL IV PRN (03:58)
[2019-06-28] MEDS ORDERED: CIPROFLOXACIN / D5W 400 MG/200 ML BAG IV SCH (06:00)
[2019-06-28 06:08] LABS: BUN Creatinine Ratio 20.5 (10-20); Calcium 8.2 mg/dl (8.5-10.1); Creatinine Clr Calc Pharmacy 76.3 ml/min; Est GFR (African American) 95.4; Est GFR (Non-African American) 82.3; Potassium 3.8 mmol/L (3.5-5.1)
--- NOTE | 2019-06-28 08:07 | Urology Progress Note ---
Date of Service June 28, 2019 Assessment & Plan (1) Left nephrolithiasis: (2) Right ureteral stone: (3) Hydronephrosis, right: (4) Acute kidney injury: 63 year-old female patient admitted with right obstructing ureteral calculus with associated hydronephrosis, left nephrolithiasis, renal colic, and GRANT. -POD #1 right ureteroscopy, right balloon dilation of distal ureter, right laser lithotripsy of stone, right stone removal and right stent placement in addition to left retrograde and left stent placement performed by Dr. Gleason. -Patient progressing clinically as expected. -Remains afebrile. -Creatinine improved this morning. -Did have emesis last evening, has since resolved. -Okay to discharge from perspective. -Case discussed with Dr. Gleason, recommend discharging with Macrodantin 50 mg QHS x5 days, PRN Oxybutynin, and pain control. -Will arrange follow-up with urology service this week to arrange for elective ESWL. -Patient in agreement with plan, all questions answered. Thank you for allowing us to participate in the acute care of Mrs Masterson. Please reconsult us with additional questions, concerns or changes in patient status. Subjective 62 year-old female patient POD #1 right ureteroscopy, right balloon dilation of distal ureter, right laser lithotripsy of stone, right stone removal and right stent in addition to left retrograde and left stent placement. Patient alert, awake, and comfortable. Feeling better overall. Did have emesis late last evening, she believes possibly due to anesthesia. Denies nausea or vomiting today. Pain is currently minimal - did receive IV morphine last evening. Has been out of bed without dizziness or lightheadedness. Denies fevers or chills. She is voiding spontaneously without difficulty. She reports mild dysuria. Denies urinary frequency or urgency. Does have hematuria as expected. She would like to go home today. Chart review: Wbc 10.48 Hemoglobin 12.3 Creatinine 0.76 (previously 1.30) She plans to follow-up in our office this week for possible elective ESWL Friday. Denies additional urologic concerns today. Review of Systems Constitutional: no fever and no chills Gastrointestinal: as per Subjective / HPI Genitourinary: as per Subjective / HPI Neurologic: no dizziness and no syncope Physical Exam Constitutional: well developed and well nourished; no acute distress and not ill appearing Respiratory: normal respiratory effort and able to speak in complete sentences; no respiratory distress and no audible wheezes Gastrointestinal (Abdomen): Inspection/Auscultation: abdomen normal to inspection; abdomen not distended Percussion/Palpation: + abdomen tender (Mild tenderness with palpation of left lower quadrant. ) and abdomen soft; no guarding Psychiatric: Orientation: alert, oriented x 3 and cooperative Affect: euthymic affect Genitourinary: no CVA tenderness Urine in hat cloudy red in color. No visible clots noted. Results & Data Vital Signs (Past 12 Hours) Vital Signs Temp Pulse Resp BP BP Pulse Ox 06/28/19 07:27 37.2 C 74 16 143/77 H 93 06/28/19 04:02 151/83 H 06/28/19 03:40 37.1 C 72 18 169/77 H 94 06/27/19 23:03 37.4 C 84 18 147/72 H 95 PG Care Time/CCT Total # of Minutes Spent Total Time Spent with Patient: Total time spent is greater than 50% in coordination of care (as documented) at patient's floor/unit and/or counseling patient: Coding Level of Care Code 69024 Subseq Hosp Care Lvl 2 Diagnoses Left nephrolithiasis N20.0 Right ureteral stone N20.1 Hydronephrosis, right N13.30 Acute kidney injury N17.9
--- NOTE | 2019-06-28 08:27 | Discharge Summary ---
Date of Service June 28, 2019 Admission HPI Per Admitting Provider She is a 63-year-old female without significant past medical history has been complaining of severe right lower abdominal pain that goes to the groin since this morning associated with nausea and vomiting. She denies any fever and/or chills with it and denies any problems with urination or any blood in the urine. Does not have any problem with her bowel habit. She denies any chest pain, shortness of breath, palpitation. And she denies any numbness and or tingling involving any of the extremities. CT of the abdomen did show 2 mm obstructing right ureteric stone with associated hydronephrosis and also 9 mm left renal pelvis stone. She was admitted to medical floor for continuation of care and urologist was consulted. Admission Exam Per Admitting Provider Physical Exam: Lying in bed with acute distress due to right lower abdominal pain and nausea Constitutional: well developed, well nourished, + acute distress (Abdominal pain and nausea) and + ill appearing Eyes: PERRL, conjunctivae normal, anicteric sclerae ENMT: external ear and nose normal, oropharynx normal Neck: trachea midline, no thyromegaly Respiratory: normal respiratory effort, lungs clear to auscultation Cardiovascular: Rate/Rhythm: regular rate and regular rhythm Heart Sounds: no murmur Gastrointestinal (Abdomen): Inspection/Auscultation: abdomen normal to inspection and normal bowel sounds; abdomen not distended Percussion/Palpation: + abdomen tender (Right lower quadrant and groin area) Musculoskeletal: No acute arthritis in any joints Neurologic: moves all extremities; no focal motor deficits Alert, awake and oriented x3 Lymphatic: no cervical or axillary lymphadenopathy Principal Diagnosis Renal Stone GRANT Hydronephrosis Discharge Exam ROS-No Headache, No Visual Changes, No Nausea, No Vomiting, No Fever, No Chills, No Neck Pain or Stiffness, No Chest Pain, No Palpitations, No SOB, No LYNN, No Cough, No Sputum, No Wheezing, No Abdominal Pain, No Diarrhea, No Hematemesis, No Hemoptysis, No Unexpected Weight Loss, No Flank pain, No Melena, No Hematochezia, No Frequency, No Urgency, No Burning, No Hematuria, No Rashes, No Diaphoresis. Appetite is Normal Physical Exam Gen-AAO x 3, NAD, Afebrile Head-NCAT, EOMI, PERRLA, Anicteric Sclera, No Posterior Pharyngeal Erythema Neck-Supple, No JVD, No Thyromegaly, No Masses, No LAD, No Bruits Lungs-Clear to Auscultation Bilaterally, No Rales, No Rhonchi, No Wheezing, No Crepitus Chest-No S4, +S1, +S2, No S3, No Murmurs, No Rubs, No Gallops, No Ectopy Abdomen-Soft, Bowel Sounds Present, Non Tender, Non Distended, No Hepatomegaly, No Splenomegaly, No Palpable Masses, No Rebound, No Rigidity, No Guarding Musculoskeletal-Full Range of Motion Bilaterally, No CVAT Extremities-No Cyanosis, No Clubbing, No Edema Nuero-Cranial Nerves II-XII grossly intact, Motor WNL, DTRs WNL, Strength WNL, Non Focal Psych-Normal Mood Discharge Data Allergies Allergy/AdvReac Type Severity Reaction Status Date / Time No Known Allergies Allergy Unverified 06/26/19 08:05 Consultations 06/26/19 09:18 ED Decision to Admit Stat 06/26/19 10:01 Consult Urology Routine Procedures Performed Operation Date: 06/27/19 12:00 Actual Procedures p Laser Lithotripsy Holmium(Bilateral) - Beto Gleason MD Ordered Studies 06/26/19 07:13 CT abd pelvis wo con Stat 06/27/19 11:32 FL retrograde includes kub Routine Current Diagnoses Unspecified hydronephrosis (06/26/19) Acute kidney failure, unspecified (06/26/19) Calculus of kidney (06/26/19) Calculus of ureter (06/26/19) Encounter for prophylactic measures, unspecified (06/26/19) Allergies No Known Allergies Allergy (Unverified 06/26/19 08:05) Height/Weight/Isolation Height 5 ft 4 in Weight 81.7 kg Chemistry 06/26/19 06/27/19 06/28/19 07:25 06:09 04:56 Sodium 141 141 138 Potassium 3.8 3.9 3.8 Chloride 110 H 110 H 109 H Carbon Dioxide 23 25 24 Anion Gap 8.0 6.0 5.0 BUN 18 21 H 16 Creatinine 1.07 1.30 H 0.76 D Glucose 166 H 106 H 131 H Urinalysis 06/26/19 08:25 Urine Color Yellow Urine Appearance Clear Urine pH 5.5 Ur Specific [place] 1.019 Urine Protein Trace H Urine Glucose (UA) Negative Urine Ketones Negative Urine Blood 3+ H Urine Nitrite Negative Urine Bilirubin Negative Hospital Course (1) Right ureteral stone: Right ureteral obstructing calculus with associated hydronephrosis. The patient underwent a right ureteral laser procedure with bilateral ureteral stent placement 06/26. Her pain is resolved and she is stable. Repeat lab work and plans for ESWL to the left later this week in urology clinic. (2) Acute kidney injury: Secondary to obstructive uropathy versus prerenal azotemia versus NSAID use. (3) Left nephrolithiasis: Plan for ESWL to left in urology clinic later on this week. (4) DVT prophylaxis: Disposition-to home today Total Time Total Time Spent Total Time Spent (In Minutes): 45 mins Total Time Includes: Examination of the Patient, Discharge Planning, Medication Reconciliation and Communication With Other Providers Discharge Plan Discharge Items Reason For Visit: RT OBSTRUCTING URETERAL STONE W/HYDRO Stand-Alone Forms: [facility] Medications and DC Order Prescriptions: No Action diclofenac sodium [Voltaren] 1 % Gel 2 g TOPICAL QID RF: 0 Admission Data Admit Date/Time: 06/26/19 10:01 Attending Provider: Fredis Rodriguez Admit Provider: Fatimah Knight Primary Care Provider: Bro Mcallister Other Providers: Fatimah Knight ; Beto Gleason
--- NOTE | 2019-06-28 12:46 | Electrocardiogram Report ---
Test Reason : Blood Pressure : / mmHG Vent. Rate : 069 BPM Atrial Rate : 069 BPM P-R Int : 156 ms QRS Dur : 084 ms QT Int : 390 ms P-R-T Axes : 049 006 027 degrees QTc Int : 417 ms Normal sinus rhythm Normal ECG No previous ECGs available Confirmed by Beto Mcpherson ([id number]) on 06/28/2019 12:45:51 PM Referred By: REFERRED SELF Confirmed By:Beto Mcpherson
[2019-07-01 02:39] LABS: Calculus Nidus Not Observed; Component 2 DNR
== END 2019-06-28 11:58 | disposition home or self-care (01) | DRG 661 ==
LOC: ED 06:57 → 3N 10:01 → SUATTDRO 10:01 → 3N 11:02